=== PATIENT | male | born 1955 | race Caucasian/White ===

== ENCOUNTER → 2019-02-17 | Outpatient (REF) | payer OTHER ==
[2019-02-17 13:39] LABS: PERCENT SATURATION 24.9 % (19.7-50.0)
== END ==
LOC: M LAB REF 12:40
PROVIDERS: ATTEND Internal Medicine
DX: Z01.818 Encounter for other preprocedural examination (principal); M25.559 Pain in unspecified hip; M16.11 Unilateral primary osteoarthritis, right hip

== ENCOUNTER → 2019-11-20 | Outpatient (REF) | payer OTHER | LOC: M LAB REF 16:56 | PROVIDERS: ATTEND Nurse Practitioner Adult Health | DX: T56.891A Toxic effect of other metals, accidental (unintentional), initial encounter (principal); X58.XXXA Exposure to other specified factors, initial encounter; Y92.9 Unspecified place or not applicable ==

== ENCOUNTER → 2020-04-22 | Outpatient (REF) | payer OTHER | LOC: M LAB REF 11:51 | PROVIDERS: ATTEND Nurse Practitioner Adult Health | DX: T56.891A Toxic effect of other metals, accidental (unintentional), initial encounter (principal); M16.11 Unilateral primary osteoarthritis, right hip; Z13.88 Encounter for screening for disorder due to exposure to contaminants ==

== ENCOUNTER 2022-08-13 11:05 | Day surgery (SDC) | payer OTHER ==
[~2022-08-13] VITALS: Ht 170.2 cm; Wt 90.4 kg
[~2022-08-13 11:05] MED LIST: ATOR1TAB21; LIDOCAINE 2% 100MG/5ML SDV (FOR ANES.) As Ordered ONE; NS 1,000 ML IV ONE; TADA5TAB; propofoL 200 MG/20 ML VIAL As Ordered ONE
[2022-08-13 13:18] VITALS: BP 156/75
== END 2022-08-13 13:20 | disposition home or self-care (01) ==
LOC: M OPP 11:05
PROVIDERS: ATTEND Internal Medicine Gastroenterology
DX: Z86.010 Personal history of colon polyps (principal); D12.3 Benign neoplasm of transverse colon; K64.0 First degree hemorrhoids; E78.5 Hyperlipidemia, unspecified; Z79.899 Other long term (current) drug therapy

== ENCOUNTER → 2023-02-15 | Outpatient (CLI) | payer OTHER ==
[~2023-02-15] MED LIST changes: -LIDOCAINE 2% 100MG/5ML SDV (FOR ANES.) As Ordered ONE; -NS 1,000 ML IV ONE; -propofoL 200 MG/20 ML VIAL As Ordered ONE
== END ==
LOC: M WUC 10:41
PROVIDERS: ATTEND Nurse Practitioner Adult Health
DX: R04.2 Hemoptysis (principal)